=== PATIENT | female | born 1980 | race American Indian/Alaskan Native ===

== ENCOUNTER 2017-07-30 19:45 | Emergency (ER) | payer BC, MEDICAID ==
[2017-07-30 20:32] LABS: CHLORIDE,CL 106 mmol/L (101-111); SODIUM,NA 137 mmol/L (135-145)
[2017-07-30] MEDS ORDERED: Ketorolac 30 MG/ML SDV IVPUSH ONE (21:32)
--- NOTE | 2017-07-30 21:38 | EDM.PDOC ---
ED HPI GENERAL MEDICAL PROBLEM - General Chief Complaint: Cardiovascular Problem Stated Complaint: [id number] ARM HURTS CHEST PAINS Time Seen by Provider: 07/30/17 20:30 Source of Information: Reports: Patient History Limitations: Reports: No Limitations - History of Present Illness INITIAL COMMENTS - FREE TEXT/NARRATIVE: intermittent pain to left side of chest and under armpit since , Seemed worse tonight and felt heart was going fast. Left Arm Pain Score (Numeric/FACES): 3 - Related Data Allergies Allergy/AdvReac Type Severity Reaction Status Date / Time Sulfa (Sulfonamide Allergy Difficulty Verified 07/30/17 20:14 Antibiotics) Breathing pediazole Allergy unknown Uncoded 07/30/17 20:14 Home Meds: Home Meds Cyclobenzaprine [Flexeril] 10 mg PO DAILY PRN 08/16/13 [History] Hydrocodone/Acetaminophen [Hydrocodon-Acetaminophn 10-325] 1 tab PO Q4H PRN [History] LORazepam [Ativan] 1 mg PO Q8HR PRN 08/16/13 [History] Naproxyn PRN 08/16/13 [History] Pantoprazole [Protonix] 40 mg PO DAILY 08/16/13 [History] Zertec 1 tab PO DAILY 08/16/13 [History] Past Medical History - Past Surgical History Other Musculoskeletal Surgeries/Procedures:: left shoulder surgery Social & Family History - Tobacco Use Smoking Status *Q: Never Smoker - Caffeine Use Caffeine Use: Reports: Soda - Recreational Drug Use Recreational Drug Use: No - Living Situation & Occupation Living situation: Reports: with Family Occupation: Unemployed ED ROS GENERAL - Review of Systems Review Of Systems: See Below Constitutional: Denies: Fever, Chills HEENT: Reports: No Symptoms Respiratory: Reports: No Symptoms, Other (hurts to breathe at times) Cardiovascular: Reports: Chest Pain GI/Abdominal: Reports: No Symptoms Skin: Reports: No Symptoms Neurological: Reports: No Symptoms Psychiatric: Reports: Anxiety (hx) ED EXAM, GENERAL - Physical Exam Exam: See Below Exam Limited By: No Limitations General Appearance: Alert, Anxious Eye Exam: Bilateral Eye: EOMI, PERRL Ears: Normal External Exam Nose: Normal Inspection Throat/Mouth: Normal Inspection Head: Atraumatic, Normocephalic Neck: Normal Inspection, Full Range of Motion Respiratory/Chest: No Respiratory Distress, Lungs Clear, Other (lateral upper chest wall tenderness with light palpation, wincing iwth palpation to axillaery area) Cardiovascular: Normal Peripheral Pulses, No Edema GI/Abdominal: Normal Bowel Sounds Extremities: Normal Inspection Neurological: Alert, Oriented, Normal Cognition Psychiatric: Anxious Skin Exam: Warm, Dry, Intact, Normal Color EKG INTERPRETATION Rhythm: NSR Course - Vital Signs Last Recorded V/S: Last Vital Signs Temp 98.7 F 07/30/17 20:04 Pulse 110 H 07/30/17 20:04 Resp 16 07/30/17 20:04 BP 108/80 07/30/17 20:04 Pulse Ox 100 07/30/17 20:04 - Orders/Labs/Meds Orders: Active Orders 24 hr Category Date Time Status EKG Documentation Completion [RC] URGENT Care 07/30/17 20:06 Active Labs: Laboratory Tests 07/30/17 07/30/17 Range/Units 19:58 19:58 WBC 10.3 H (5.0-10.0) 10^3/uL RBC 4.18 L (4.2-5.4) 10^6/uL Hgb 13.2 (12.0-16.0) g/dL Hct 38.6 (37.0-47.0) % MCV 92.3 (80-100) fL MCH 31.6 (27.0-34.0) pg MCHC 34.2 (33.0-35.0) g/dL Plt Count 334 (150-450) 10^3/uL Neut % (Auto) 62.7 (42.2-75.2) % Lymph % (Auto) 27.9 (20.5-50.1) % [place] % (Auto) 7.0 (2-8) % Eos % (Auto) 2.1 (1.0-3.0) % Baso % (Auto) 0.3 (0.0-1.0) % Sodium 137 (135-145) mmol/L Potassium 3.4 L (3.6-5.0) mmol/L Chloride 106 (101-111) mmol/L Carbon Dioxide 23.0 (21.0-31.0) mmol/L Anion Gap 11.4 BUN 11 (7-18) mg/dL Creatinine 0.7 (0.6-1.3) mg/dL Est Cr Clr Drug Dosing 100.94 mL/min Estimated GFR (MDRD) > 60 BUN/Creatinine Ratio 15.71 Glucose 152 H (74-105) mg/dL Calcium 8.8 (8.4-10.2) mg/dl Total Bilirubin 0.8 (0.2-1.0) mg/dL AST 25 (10-42) IU/L ALT 24 (10-60) IU/L Alkaline Phosphatase 71 (42-121) IU/L Troponin I < 0.02 (0.00-0.02) ng/ml Total Protein 7.4 (6.7-8.2) g/dl Albumin 4.2 (3.2-5.5) g/dl Globulin 3.2 Albumin/Globulin Ratio 1.31 Amylase 76 (28-100) U/L Lipase 33 (22-51) U/L Meds: Medications Discontinued Medications Generic Name Dose Route Start Last Admin Trade Name Freq PRN Reason Stop Dose Admin Ketorolac Tromethamine 30 mg 07/30/17 21:32 07/30/17 21:36 Toradol IVPUSH 07/30/17 21:33 30 mg ONETIME ONE Administration Departure - Departure Time of Disposition: 21:33 Disposition: Home, Self-Care 01 Condition: Good Clinical Impression: Left-sided chest wall pain Instructions: Chest Wall Pain, [id number] Referrals: Rochelle Azar MD [Primary Care Provider] - Forms: ED Department Discharge Additional Instructions: alternate tylenol and ibuprofen for discomfort warm pack to left chest increase fluids light bland diet Lorazepam as prescribed for anxiety - My Orders Last 24 Hours: My Active Orders 07/30/17 20:06 EKG Documentation Completion [RC] URGENT - Assessment/Plan Last 24 Hours: My Active Orders 07/30/17 20:06 EKG Documentation Completion [RC] URGENT
--- NOTE | 2017-08-02 13:14 | EKG ---
07/30/2017 - ADRIENNE EDMOND - FINDINGS: A 12-lead EKG shows sinus rhythm with sinus tachycardia with heart rate of 123. No significant ST elevation or ST depression noted on this 12-lead EKG. [facility] /[id number]
== END 2017-07-30 21:45 | disposition home or self-care (01) ==
LOC: DL.ED 19:45
DX: R07.89 Other chest pain (principal); Z88.2 Allergy status to sulfonamides; Z88.8 Allergy status to other drugs, medicaments and biological substances
CPT/HCPCS: 36415; 71045; 80053; 82150; 83690; 84484; 85025; 93005; 96374; 99284; J1885

== ENCOUNTER 2018-11-22 19:38 | Emergency (ER) | payer BC ==
[2018-11-22] MEDS ORDERED: Sodium Chloride 0.9% 1,000 ML IV ONE (20:03)
[2018-11-22] MEDS ORDERED: Ketorolac 30 MG/ML SDV IVPUSH ONE (20:03)
--- NOTE | 2018-11-22 20:10 | EDM.PDOC ---
ED HPI GENERAL MEDICAL PROBLEM - General Chief Complaint: Headache Stated Complaint: MIGRANE Time Seen by Provider: 11/22/18 19:55 Source of Information: Reports: Patient History Limitations: Reports: No Limitations - History of Present Illness INITIAL COMMENTS - FREE TEXT/NARRATIVE: This 38 yo female patient reports to the ED with a 2 week history of headaches. The patient reports she was seen in the clinic for her headaches and was prescribed a 10 day supply of Imitrex. The patient reports she took 2 doses of Imitrex today, but has had no symptom relief. The patient reports she has also been experiencing facial pressure and intermittent dizziness. The patient reports she did not contact her primary care provider on Friday as she was traveling. The patient reports she has to travel again tomorrow for work. The patient reports she has only take the Imitrex and her regular medications today and has not taken any Tylenol or ibuprofen. Duration: Week(s): (2) Location: Reports: Head Quality: Reports: Ache, Pressure, Throbbing Severity: Severe Improves with: Reports: None Worsens with: Reports: None Context: Reports: Other Associated Symptoms: Reports: Headaches Treatments ACCOUNTING DIRECTOR: Reports: Other Medication(s) (Imitrex x 2) Frontal Head Pain Score (Numeric/FACES): 7 - Related Data Allergies Allergy/AdvReac Type Severity Reaction Status Date / Time Sulfa (Sulfonamide Allergy Difficulty Verified 03/15/18 12:25 Antibiotics) Breathing pediazole Allergy unknown Uncoded 07/30/17 20:14 Home Meds: Home Meds ALPRAZolam [Alprazolam] 0.5 mg PO ASDIRECTED PRN 11/22/18 [History] Cetirizine HCl [Zyrtec] 10 mg PO DAILY 11/22/18 [History] DULoxetine HCl [Duloxetine HCl] 20 mg PO DAILY 11/22/18 [History] Ibuprofen 400 mg PO ASDIRECTED PRN 11/22/18 [History] SUMAtriptan [Imitrex] 50 mg PO BID 11/22/18 [History] buPROPion HCl [Wellbutrin Xl] 300 mg PO DAILY 11/22/18 [History] Past Medical History HEENT History: Reports: Impaired 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 - Physical Exam Exam: See Below Exam Limited By: No Limitations General Appearance: Alert, WD/WN, Moderate Distress Eye Exam: Bilateral Eye: EOMI, Normal Inspection, PERRL Ears: Normal External Exam, Normal Canal, Hearing Grossly Normal, Normal TMs Nose: Normal Inspection, Normal Mucosa, No Blood Throat/Mouth: Normal Inspection, Normal Lips, Normal Teeth, Normal Gums, Normal Oropharynx, Normal Voice, No Airway Compromise Head Exam: Atraumatic, Normocephalic, Sinus Tenderness (diffuse) Neck: Normal Inspection, Supple, Non-Tender, Full Range of Motion Respiratory/Chest: No Respiratory Distress, Lungs Clear, Normal Breath Sounds, No Accessory Muscle Use, Chest Non-Tender Cardiovascular: Normal Peripheral Pulses, Regular Rate, Rhythm, No Edema, No Gallop, No JVD, No Murmur, No Rub GI/Abdominal: Normal Bowel Sounds, Soft, Non-Tender, No Organomegaly, No Distention, No Abnormal Bruit, No Mass (Female) Exam: Deferred Rectal (Female) Exam: Deferred Neuro Exam (Abbreviated): Alert, Oriented, CN II-XII Intact, Normal Cognition, Normal Gait, Normal Reflexes, No Motor/Sensory Deficits Back Exam: Normal Inspection, Full Range of Motion, NT Extremities: Normal Inspection, Normal Range of Motion, Non-Tender, No Pedal Edema, Normal Capillary Refill Psychiatric: Normal Affect, Normal Mood Skin Exam: Warm, Dry, Intact, Normal Color, No Rash Course - Vital Signs Last Recorded V/S: Last Vital Signs Temp 37.1 C 11/22/18 19:40 Pulse 111 H 11/22/18 19:40 Resp 18 11/22/18 19:40 BP 127/72 11/22/18 19:40 Pulse Ox 96 11/22/18 19:40 - Orders/Labs/Meds Meds: Medications Discontinued Medications Generic Name Dose Route Start Last Admin Trade Name Freq PRN Reason Stop Dose Admin Sodium Chloride 1,000 mls @ 999 mls/hr 11/22/18 20:03 11/22/18 20:25 Normal Saline IV 11/22/18 21:03 999 mls/hr .BOLUS ONE Administration Ketorolac Tromethamine 30 mg 11/22/18 20:03 11/22/18 20:26 Toradol IVPUSH 11/22/18 20:04 30 mg ONETIME ONE Administration Meclizine HCl 25 mg 11/22/18 21:14 11/22/18 21:22 Antivert PO 11/22/18 21:15 25 mg ONETIME ONE Administration Departure - Departure Time of Disposition: 21:54 Disposition: Home, Self-Care 01 Condition: Fair Clinical Impression: Headache Qualifiers: Headache type: unspecified Headache chronicity pattern: acute headache Intractability: intractable Qualified Code(s): R51 - Headache BPPV (benign paroxysmal positional vertigo) Qualifiers: Laterality: unspecified laterality Qualified Code(s): H81.10 - Benign paroxysmal vertigo, unspecified ear - Discharge Information *PRESCRIPTION DRUG MONITORING PROGRAM REVIEWED*: Not Applicable *COPY OF PRESCRIPTION DRUG MONITORING REPORT IN PATIENT DIANA: Not Applicable Instructions: Benign Positional Vertigo, Vertigo, Bkuy-[id number], Recurrent Migraine Headache, [id number] Forms: ED Department Discharge Care Plan Goals: The patient was advised of the examination and CT results during the visit. The patient was given IV fluids, IV Toradol and oral Meclizine (25 mg) while in the ED with improvement of her symptoms. The patient was discharged with Meclizine ( 12.5 mg) #6 to take 2 by mouth 3 times per day as needed and a script for Meclizine (25 mg) #12 to take 1 by mouth 3 times per day as needed. If the patient has any additional symptoms or concerns, the patient should either return to the emergency department or visit her primary care facility.
[2018-11-22] MEDS ORDERED: Meclizine 12.5 MG Tab PO ONE (21:14)
[2018-11-22] MEDS ORDERED: Meclizine 12.5 MG Tab ONE (21:58)
== END 2018-11-22 22:08 | disposition home or self-care (01) ==
LOC: DL.ED 19:38
DX: H81.10 Benign paroxysmal vertigo, unspecified ear (principal); R51 Headache; Z88.2 Allergy status to sulfonamides; Z88.8 Allergy status to other drugs, medicaments and biological substances; Z79.899 Other long term (current) drug therapy; Z90.710 Acquired absence of both cervix and uterus
CPT/HCPCS: 70486; 96361; 96374; 99283; A9270; J1885; J7030

== ENCOUNTER 2019-04-18 15:43 | Emergency (ER) | payer BC ==
[2019-04-18] MEDS ORDERED: Ondansetron 4 MG/2 ML SDV ONE (15:48)
[2019-04-18] MEDS ORDERED: Ondansetron 4 MG in Sodium Chloride 0.9% 50 ML IV ONE (15:48)
[2019-04-18] MEDS ORDERED: Diazepam 5 MG Tab PO ONE (16:00)
--- NOTE | 2019-04-18 16:02 | EDM.PDOC ---
ED HPI GENERAL MEDICAL PROBLEM - General Chief Complaint: Lower Extremity Injury/Pain Stated Complaint: AMBULANCE Time Seen by Provider: 04/18/19 15:45 Source of Information: Reports: Patient, RN, Significant Other History Limitations: Reports: No Limitations - History of Present Illness INITIAL COMMENTS - FREE TEXT/NARRATIVE: to 8 year old female presents to the ER with EMS after a fall. Patient reports she was getting into the car and slipped on the stairs. She reports falling down 4 stairs with her buttocks. She is reporting buttock pain with the left worst than the right side. She denies hitting her head or loss of consciousness. She is moaning and anxious. She is also vomiting. She was given fentanyl 75 mcg enroute to the ER but her states she has been struggling with nausea for the past two weeks. Patient is not . She has had a hysterectomy. Onset: Today Duration: Hour(s): (1), Constant Location: Reports: Pelvis Quality: Reports: Throbbing Severity: Severe Improves with: Reports: None Worsens with: Reports: Movement Associated Symptoms: Reports: Nausea/Vomiting Treatments CONSULTING SERVICES MANAGER: Reports: Other (see below) Left Hip Pain Score (Numeric/FACES): 10 - Related Data Allergies Allergy/AdvReac Type Severity Reaction Status Date / Time Sulfa (Sulfonamide Allergy Difficulty Verified 04/18/19 16:34 Antibiotics) Breathing pediazole Allergy unknown Uncoded 07/30/17 20:14 Home Meds: Home Meds ALPRAZolam [Alprazolam] 0.5 mg PO ASDIRECTED PRN 11/22/18 [History] Cetirizine HCl [Zyrtec] 10 mg PO DAILY 11/22/18 [History] DULoxetine HCl [Duloxetine HCl] 20 mg PO DAILY 11/22/18 [History] Ibuprofen 400 mg PO ASDIRECTED PRN 11/22/18 [History] SUMAtriptan [Imitrex] 50 mg PO BID 11/22/18 [History] buPROPion HCl [Wellbutrin Xl] 300 mg PO DAILY 11/22/18 [History] Past Medical History HEENT History: Reports: Impaired 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: Musculoskeletal History: Reports: Back Pain, Chronic Neurological History: Reports: Migraines Psychiatric History: Reports: Depression - Past Surgical History Female Surgical History: Reports: Section, Hysterectomy Musculoskeletal Surgical History: Reports: Other (See Below) Other Musculoskeletal Surgeries/Procedures:: left shoulder surgery Social & Family History - Caffeine Use Caffeine Use: Reports: Energy Drinks - Living Situation & Occupation Living situation: Reports: with Family Occupation: Unemployed Review of Systems - Review of Systems Review Of Systems: Comprehensive ROS is negative, except as noted in HPI. ED EXAM, GENERAL - Physical Exam Exam: See Below Exam Limited By: No Limitations General Appearance: Alert, Anxious, Severe Distress Eye Exam: Bilateral Eye: Normal Inspection Ears: Normal External Exam, Normal Canal, Hearing Grossly Normal, Normal TMs Nose: Normal Inspection, Normal Mucosa, No Blood Throat/Mouth: Normal Inspection, Normal Lips, Normal Teeth, Normal Gums, Normal Oropharynx, Normal Voice, No Airway Compromise Head: Atraumatic, Normocephalic Neck: Normal Inspection, Supple, Non-Tender, Full Range of Motion Respiratory/Chest: No Respiratory Distress, Lungs Clear, Normal Breath Sounds, No Accessory Muscle Use, Chest Non-Tender Cardiovascular: Normal Peripheral Pulses, Regular Rate, Rhythm, No Edema, No Gallop, No JVD, No Murmur, No Rub Peripheral Pulses: 3+: Posterior Tibial (L), Posterior Tibial (R), Dorsalis Pedis (L), Dorsalis Pedis (R) GI/Abdominal: Normal Bowel Sounds, Soft, Non-Tender, No Organomegaly, No Distention, No Abnormal Bruit, No Mass Back Exam: Normal Inspection, Other (unable to perform as patient refused.) Extremities: Normal Inspection, No Pedal Edema, Normal Capillary Refill, Limited Range of Motion (Limitted ROM noted as patient will not move her legs due to pain.) Neurological: Alert, Oriented, CN II-XII Intact, Normal Cognition, Normal Gait, Normal Reflexes, No Motor/Sensory Deficits Psychiatric: Anxious, Tearful Skin Exam: Warm, Dry, Intact, No Rash, Ecchymosis (mild bruising noted on the left buttocks) Course - Vital Signs Last Recorded V/S: Last Vital Signs Temp 98.2 F 04/18/19 15:45 Pulse 88 04/18/19 17:12 Resp 24 H 04/18/19 15:45 BP 94/47 L 04/18/19 17:12 Pulse Ox 99 04/18/19 17:12 - Orders/Labs/Meds Labs: Laboratory Tests 04/18/19 04/18/19 Range/Units 16:44 16:44 WBC 12.5 H (5.0-10.0) 10^3/uL RBC 4.19 L (4.2-5.4) 10^6/uL Hgb 13.1 (12.0-16.0) g/dL Hct 38.9 (37.0-47.0) % MCV 92.8 (80-100) fL MCH 31.3 (27.0-34.0) pg MCHC 33.7 (33.0-35.0) g/dL Plt Count 342 (150-450) 10^3/uL Neut % (Auto) 78.2 H (42.2-75.2) % Lymph % (Auto) 14.1 L (20.5-50.1) % [place] % (Auto) 6.8 (2-8) % Eos % (Auto) 0.6 L (1.0-3.0) % Baso % (Auto) 0.3 (0.0-1.0) % Sodium 138 (135-145) mmol/L Potassium 4.4 (3.6-5.0) mmol/L Chloride 105 (101-111) mmol/L Carbon Dioxide 23.0 (21.0-31.0) mmol/L Anion Gap 14.4 BUN 9 (7-18) mg/dL Creatinine 0.7 (0.6-1.3) mg/dL Est Cr Clr Drug Dosing 95.94 mL/min Estimated GFR (MDRD) > 60 BUN/Creatinine Ratio 12.85 Glucose 90 (74-105) mg/dL Calcium 9.0 (8.4-10.2) mg/dl Total Bilirubin 1.1 H (0.2-1.0) mg/dL AST 24 (10-42) IU/L ALT 27 (10-60) IU/L Alkaline Phosphatase 62 (42-121) IU/L Total Protein 7.1 (6.7-8.2) g/dl Albumin 4.1 (3.2-5.5) g/dl Globulin 3.0 Albumin/Globulin Ratio 1.37 Meds: Medications Discontinued Medications Generic Name Dose Route Start Last Admin Trade Name Freq PRN Reason Stop Dose Admin Diazepam 5 mg 04/18/19 16:00 Valium. PO 04/18/19 16:01 ONETIME ONE Diazepam 5 mg 04/18/19 16:02 04/18/19 16:08 Valium IVPUSH 04/18/19 16:03 5 mg ONETIME ONE Administration Diazepam 5 mg 04/18/19 17:04 04/18/19 17:10 Valium IVPUSH 04/18/19 17:05 5 mg ONETIME ONE Administration Ondansetron HCl 4 mg/ Sodium 52 mls @ 200 mls/hr 04/18/19 15:48 04/18/19 15: 55 Chloride IV 04/18/19 16:04 200 mls/hr ONETIME ONE Administration Sodium Chloride 500 mls @ 500 mls/hr 04/18/19 16:15 04/18/19 17:11 Normal Saline IV 500 mls/hr .BOLUS HONG Administration Metoclopramide HCl 10 mg 04/18/19 17:03 04/18/19 17:10 Reglan IM 04/18/19 17:04 10 mg ONETIME ONE Administration Ondansetron HCl Confirm 04/18/19 15:48 04/18/19 15:55 Zofran Administered 04/18/19 15:49 Not Given Dose 4 mg .ROUTE .[facility] - Radiology Interpretation Free Text/Narrative:: PROCEDURE INFORMATION: Exam: CT Pelvis Without Contrast; Skeletal Exam date and time: 04/18/2019 4:16 PM Age: 38 years old Clinical indication: Other: Fall/ pain left hip------pt uncooperative TECHNIQUE: Imaging protocol: Computed tomography images of the pelvis without contrast. Exam focused on the skeletal structures. Radiation optimization: All CT scans at this facility use at least one of these dose optimization techniques: automated exposure control; mA and/or kV adjustment per patient size (includes targeted exams where dose is matched to clinical indication); or iterative reconstruction. COMPARISON: CR Hip Min 1V Lt 04/18/2019 3:54 PM FINDINGS: Bones/joints: Unremarkable. No acute fracture. No dislocation. Soft tissues: There is a small hematoma superficial to upper left gluteal complex IMPRESSION: No acute osseous findings. - Re-Assessments/Exams Free Text/Narrative Re-Assessment/Exam: Zofran 4 mg administered with little relief. Valium 5 g x 2 with Reglan 10 mg administered with some relief. in pain. CT and lab results reviewed with patient. Encouraged applying ice every 20 minutes/hour. Rx for Flexeril 10 mg TID given to patient. Follow up with PCP. More information included in the AVS. Departure - Departure Time of Disposition: 17:28 Disposition: Home, Self-Care 01 Condition: Good Clinical Impression: Fall (on) (from) other stairs and steps, initial encounter, Superficial hematoma - Discharge Information Instructions: Muscle Strain, [id number], Fall Prevention in the Home, Adult Referrals: Rochelle Azar MD [Primary Care Provider] - Forms: ED Department Discharge Additional Instructions: Follow up with PCP as discussed. Sepsis Event Note - Evaluation Sepsis Screening Result: No Definite Risk - Focused Exam Date Exam was Performed: 04/19/19 Time Exam was Performed: 14:42
[2019-04-18] MEDS ORDERED: Sodium Chloride 0.9% 500 ML IV SCH (16:15)
[2019-04-18] MEDS ORDERED: Metoclopramide 10 MG/2 ML SDV IM ONE (17:03)
[2019-04-18 17:13] LABS: ANION GAP 14.4; CHLORIDE,CL 105 mmol/L (101-111); SODIUM,NA 138 mmol/L (135-145)
== END 2019-04-18 18:04 | disposition home or self-care (01) ==
LOC: DL.ED 15:43
DX: S30.0XXA Contusion of lower back and pelvis, initial encounter (principal); F32.9 Major depressive disorder, single episode, unspecified; Z88.2 Allergy status to sulfonamides; Z88.8 Allergy status to other drugs, medicaments and biological substances; Z79.899 Other long term (current) drug therapy; W10.8XXA Fall (on) (from) other stairs and steps, initial encounter
CPT/HCPCS: 36415; 72192; 73501; 80053; 85025; 96361; 96372; 96374; 96375; 96376; 99284; J2405; J2765; J3360; J7040; J7050

== ENCOUNTER 2019-08-06 14:19 | Inpatient (IN) | payer BC ==
[2019-08-06] MEDS ORDERED: Sodium Chloride 0.9% 1,000 ML IV ONE (14:32)
[2019-08-06] MEDS ORDERED: Ondansetron 4 MG/2 ML SDV IVPUSH ONE (14:33)
[2019-08-06] MEDS ORDERED: HYDROmorphone 0.5 MG/0.5 ML Syringe IVPUSH ONE (14:39)
--- NOTE | 2019-08-06 14:49 | EDM.PDOC ---
ED HPI GENERAL MEDICAL PROBLEM - General Chief Complaint: Flank Pain Stated Complaint: ABDOMINAL PAIN Time Seen by Provider: 08/06/19 14:35 Source of Information: Reports: Patient History Limitations: Reports: No Limitations - History of Present Illness INITIAL COMMENTS - FREE TEXT/NARRATIVE: This 39 yo female patient was sent to the ED from the [facility] due to right sided abdominal pain. The patient reports her pain started yesterday, but she has also had nausea and vomiting which started today. The patient presented to the clinic, but was in too much pain for a complete examination. The patient does have a history of kidney stones and kidney infections in the past. The patient reports her current pain is a 10/10 and locates her pain throughout the entire right side of her abdomen. Onset Date: 08/05/19 Duration: Constant, Getting Worse Location: Reports: Abdomen (Right sided) Quality: Reports: Ache, Sharp, Stabbing Severity: Severe Improves with: Reports: None Worsens with: Reports: None Context: Reports: Other Associated Symptoms: Reports: No Other Symptoms Right Flank Pain Score (Numeric/FACES): 8 Right Abdomen Pain Score (Numeric/FACES): 6 - Related Data Allergies Allergy/AdvReac Type Severity Reaction Status Date / Time Sulfa (Sulfonamide Allergy Difficulty Verified 08/06/19 14:31 Antibiotics) Breathing pediazole Allergy unknown Uncoded 08/06/19 14:31 Home Meds: Home Meds ALPRAZolam [Alprazolam] 0.5 mg PO ASDIRECTED PRN 11/22/18 [History] Cetirizine HCl [Zyrtec] 10 mg PO DAILY 11/22/18 [History] DULoxetine HCl [Duloxetine HCl] 60 mg PO DAILY 11/22/18 [History] Ibuprofen 400 mg PO ASDIRECTED PRN 11/22/18 [History] SUMAtriptan [Imitrex] 50 mg PO BID 11/22/18 [History] buPROPion HCL [Wellbutrin Xl] 300 mg PO DAILY 11/22/18 [History] Past Medical History HEENT History: Reports: Impaired Vision Gastrointestinal History: Reports: Cholelithiasis Genitourinary History: Reports: Renal Calculus, UTI, 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: Musculoskeletal History: Reports: Back Pain, Chronic Neurological History: Reports: Migraines Psychiatric History: Reports: Depression - Past Surgical History Female Surgical History: Reports: Section, Hysterectomy Musculoskeletal Surgical History: Reports: Other (See Below) Other Musculoskeletal Surgeries/Procedures:: left shoulder surgery Social & Family History - Tobacco Use Smoking Status *Q: Never Smoker Second Hand Smoke Exposure: No - Caffeine Use Caffeine Use: Reports: Energy Drinks - Recreational Drug Use Recreational Drug Use: Yes Drug Use in Last 12 Months: Yes Recreational Drug Type: Reports: Marijuana/Hashish - Living Situation & Occupation Living situation: Reports: with Family Occupation: Unemployed ED ROS GENERAL - Review of Systems Review Of Systems: Comprehensive ROS is negative, except as noted in HPI. ED EXAM, GI/ABD - Physical Exam Exam: See Below Exam Limited By: No Limitations General Appearance: Alert, WD/WN, Severe Distress, Obese Eyes: Bilateral: Normal Appearance, EOMI Ears: Normal External Exam, Normal Canal, Hearing Grossly Normal, Normal TMs Nose: Normal Inspection, Normal Mucosa, No Blood Throat/Mouth: Normal Inspection, Normal Lips, Normal Teeth, Normal Gums, Normal Oropharynx, Normal Voice, No Airway Compromise Head: Atraumatic, Normocephalic Neck: Normal Inspection, Supple, Non-Tender, Full Range of Motion Respiratory/Chest: No Respiratory Distress, Lungs Clear, Normal Breath Sounds, No Accessory Muscle Use, Chest Non-Tender Cardiovascular: Normal Peripheral Pulses, Regular Rate, Rhythm, No Edema, No Gallop, No JVD, No Murmur, No Rub GI/Abdominal Exam: Normal Bowel Sounds, Tender (throughout abdomen with light palpation. The patinet reports increased pain with psoas testing. ) (Female) Exam: Deferred Rectal (Female) Exam: Deferred Back Exam: CVA Tenderness (R) Extremities: Normal Inspection, Normal Range of Motion, Non-Tender, Normal Capillary Refill, No Pedal Edema Neurological: Alert, Oriented, CN II-XII Intact, Normal Cognition Psychiatric: Anxious, Tearful Skin Exam: Warm, Dry, Intact, Normal Color, No Rash Lymphatic: No Adenopathy Course - Vital Signs Last Recorded V/S: Last Vital Signs Temp 37.8 C 08/06/19 14:22 Pulse 123 H 08/06/19 14:22 Resp 18 08/06/19 14:22 BP 103/81 08/06/19 14:22 Pulse Ox 97 08/06/19 14:22 - Orders/Labs/Meds Orders: Active Orders 24 hr Category Date Time Status Admission Diagnosis [ADT] Urgent ADT 08/06/19 16:20 Ordered Admission Status [Patient Status] [ADT] Routine ADT 08/06/19 16:20 Ordered Abdomen wo Cont [CT] Urgent Exams 08/06/19 15:33 Ordered CULTURE BLOOD [BC] Stat Lab 08/06/19 14:32 Ordered CULTURE BLOOD [BC] Stat Lab 08/06/19 16:06 Ordered Levofloxacin/Dextrose 5%-Water [Levaquin in D5W 500 MG/ Med 08/06/19 16:12 Ordered 100 ML] 500 mg Premix Bag 1 bag IV ONETIME Medication Orders Levofloxacin/Dextrose 500 mg/ (Premix) 100 mls @ 100 mls/hr IV ONETIME ONE Stop: 08/06/19 17:11 Last Admin: 08/06/19 16:21 Dose: 100 mls/hr Labs: Laboratory Tests 08/06/19 08/06/19 08/06/19 Range/Units 14:45 14:45 14:45 WBC 13.0 H (5.0-10.0) 10^3/uL RBC 4.03 L (4.2-5.4) 10^6/uL Hgb 12.7 (12.0-16.0) g/dL Hct 37.1 (37.0-47.0) % MCV 92.1 (80-100) fL MCH 31.5 (27.0-34.0) pg MCHC 34.2 (33.0-35.0) g/dL Plt Count 262 D (150-450) 10^3/uL Neut % (Auto) 83.6 H (42.2-75.2) % Lymph % (Auto) 7.7 L (20.5-50.1) % Roberts % (Auto) 8.3 H (2-8) % Eos % (Auto) 0.2 L (1.0-3.0) % Baso % (Auto) 0.2 (0.0-1.0) % Sodium 136 (136-145) mmol/L Potassium 3.1 L (3.5-5.1) mmol/L Chloride 99 (98-107) mmol/L Carbon Dioxide 25 (21-32) mmol/L Anion Gap 15.1 H (7-13) mEq/L BUN 9 (7-18) mg/dL Creatinine 0.91 (0.55-1.02) mg/dL Est Cr Clr Drug Dosing 73.09 mL/min Estimated GFR (MDRD) > 60 BUN/Creatinine Ratio 9.9 (No establ ref range) Glucose 124 H (74-99) mg/dL Lactic Acid 1.2 (0.4-2.0) mmol/L Calcium 8.5 (8.5-10.1) mg/dL Total Bilirubin 2.1 H (0.2-1.0) mg/dL AST 19 (15-37) U/L ALT 44 (14-59) U/L Alkaline Phosphatase 100 (46-116) U/L Total Protein 7.2 (6.4-8.2) g/dL Albumin 3.4 (3.4-5.0) g/dL Globulin 3.8 Albumin/Globulin Ratio 0.9 Amylase 40 (25-115) U/L Lipase 78 (73-393) U/L Meds: Medications Generic Name Dose Route Start Last Admin Trade Name Freq PRN Reason Stop Dose Admin Levofloxacin/Dextrose 500 mg/ 100 mls @ 100 mls/hr 08/06/19 16:12 08/06/19 16 :21 Premix IV 08/06/19 17:11 100 mls/hr ONETIME ONE Administration Discontinued Medications Generic Name Dose Route Start Last Admin Trade Name Freq PRN Reason Stop Dose Admin Hydromorphone HCl 0.5 mg 08/06/19 14:39 08/06/19 14:58 Dilaudid IVPUSH 08/06/19 14:40 0.5 mg ONETIME ONE Administration Sodium Chloride 1,000 mls @ 999 mls/hr 08/06/19 14:32 08/06/19 14:51 Normal Saline IV 08/06/19 15:32 999 mls/hr .BOLUS ONE Administration Metoclopramide HCl 10 mg 08/06/19 15:01 08/06/19 15:05 Reglan IVPUSH 08/06/19 15:02 10 mg ONETIME ONE Administration Ondansetron HCl 4 mg 08/06/19 14:33 08/06/19 14:51 Zofran IVPUSH 08/06/19 14:34 4 mg ONETIME ONE Administration - Re-Assessments/Exams Free Text/Narrative Re-Assessment/Exam: 08/06/19 15:03 The patient started vomiting after she was given the IV Dilaudid. An order was placed for Reglan. Departure - Departure Time of Disposition: 16:23 Disposition: Admitted As Inpatient 68 Condition: Poor Clinical Impression: Pyelonephritis - Discharge Information *PRESCRIPTION DRUG MONITORING PROGRAM REVIEWED*: Not Applicable *COPY OF PRESCRIPTION DRUG MONITORING REPORT IN PATIENT DIANA: Not Applicable Care Plan Goals: Discussed the patient's history, examination, lab, CT and treatments with Dr. Mcdaniel. Dr. Salcido accepted the patient for continued evaluation and management as an inpatient at [facility]. Sepsis Event Note - Evaluation Sepsis Screening Result: No Definite Risk - Focused Exam Vital Signs: Vital Signs Temp Pulse Resp BP Pulse Ox 08/06/19 14:22 37.8 C 123 H 18 103/81 97 Date Exam was Performed: 08/06/19 Time Exam was Performed: 16:22 - My Orders Last 24 Hours: My Active Orders 08/06/19 14:32 CULTURE BLOOD [BC] Stat 08/06/19 15:33 Abdomen wo Cont [CT] Urgent 08/06/19 16:06 CULTURE BLOOD [BC] Stat 08/06/19 16:12 Levofloxacin/Dextrose 5%-Water [Levaquin in D5W 500 MG/100 ML] 500 mg Premix Bag 1 bag IV ONETIME 08/06/19 16:20 Admission Diagnosis [ADT] Urgent Admission Status [Patient Status] [ADT] Routine - Assessment/Plan Last 24 Hours: My Active Orders 08/06/19 14:32 CULTURE BLOOD [BC] Stat 08/06/19 15:33 Abdomen wo Cont [CT] Urgent 08/06/19 16:06 CULTURE BLOOD [BC] Stat 08/06/19 16:12 Levofloxacin/Dextrose 5%-Water [Levaquin in D5W 500 MG/100 ML] 500 mg Premix Bag 1 bag IV ONETIME 08/06/19 16:20 Admission Diagnosis [ADT] Urgent Admission Status [Patient Status] [ADT] Routine
[2019-08-06] MEDS ORDERED: Metoclopramide 10 MG/2 ML SDV IVPUSH ONE (15:01)
[2019-08-06 15:27] LABS: ANION GAP 15.1 mEq/L (7-13); CHLORIDE,CL 99 mmol/L (98-107); SODIUM,NA 136 mmol/L (136-145)
[2019-08-06] MEDS ORDERED: Levofloxacin/Dextrose 5%-Water 500 MG in Premix Bag 1 BAG IV ONE (16:12)
--- NOTE | 2019-08-06 16:18 | CT ---
EXAMINATION: Abdomen Pelvis wo Cont SEX: Female AGE: 39 years CLINICAL HISTORY: 39-year-old 219 pound female complaining of right lower quadrant pain (previous hysterectomy). "Dirty" urine reported by the ER provider. Scan technique: Volume acquisition of data emergency unenhanced CT scan of the abdomen and pelvis obtained with patient lying supine on the Siemens multislice scanner [place], [place]. All data archived in the PACS system for storage, reformatting axial/sagittal/coronal planes and study. Interpretation: 1. Edematous appearing right kidney with perinephric "dirty" retroperitoneal fat indicating sinus backflow or infection (no sign of nephrolithiasis or pyelocaliectasis and suggest pyelonephritis). 2. No renal calcifications or renal cortical mass lesion appreciated on this non-opacified exam. 3. Asymmetrically large ovary with several tiny follicular type cysts in the periphery. Multiple phleboliths in the pelvis. Symmetrically distended normal normal appearing urinary bladder. No intravesicular calcifications or bladder stones. 4. Normal caliber aortoiliac vessels. No aneurysm or dissection. 5. Subtle punctate calcific densities in the center of the gallbladder suggesting stones. No abnormal biliary ductal dilatation. 6. Unenhanced liver, stomach, spleen, pancreas, and adrenal glands unremarkable. 7. No pelvic or abdominal mass lesion, inflammatory "dirty" intraperitoneal fat, signs of mechanical bowel obstruction, ascites or free intraperitoneal air. Appendix not appreciated but certainly without stones or inflammation. CONCLUSION: Right kidney inflammation (pyelonephritis). No sign of appendicitis, nephrolithiasis or obstructive uropathy.
[2019-08-06] MEDS ORDERED: 50% Dextrose in Water 50 ML Syringe IVPUSH PRN (17:13)
[2019-08-06] MEDS ORDERED: Promethazine 25 MG Tab PO PRN ×2 (17:13→17:36)
[2019-08-06] MEDS ORDERED: Glucagon,Human Recombinant 1 MG Vial IM PRN (17:13)
[2019-08-06] MEDS ORDERED: oxyCODONE 5 MG Tab PO PRN ×2 (17:13)
[2019-08-06] MEDS ORDERED: Promethazine 25 MG/ML SDV IM PRN (17:13)
[2019-08-06] MEDS ORDERED: Ondansetron 4 MG/2 ML SDV IVPUSH PRN (17:13)
[2019-08-06] MEDS ORDERED: Morphine 2 MG/ML SYRINGE IVPUSH PRN (17:13)
[2019-08-06] MEDS ORDERED: fentaNYL 100 MCG/2 ML SDV IVPUSH ONE (17:17)
[2019-08-06] MEDS ORDERED: Promethazine 12.5 MG Supp RECTAL PRN (17:36)
--- NOTE | 2019-08-06 17:36 | PCM.HP ---
H&P History of Present Illness - General Date of Service: 08/06/19 Admit Problem/Dx: Admission Diagnosis/Problem Admission Diagnosis/Problem Nephritis Source of Information: Patient, Provider History Limitations: Reports: No Limitations - History of Present Illness Initial Comments - Free Text/Narative: Patient is a 39-year-old female with medical history significant for polycystic ovarian syndrome, antiphospholipid antibody syndrome, secondary infertility, anxiety, GERD, and obesity who was sent to the ED from clinic after she presented with abdominal pain. Patient reports that she has had 3-4/10 right- sided mid back pain that started below the wrist about 3 days ago. States that pain has been slowly progressive and has involve the right upper abdomen and now the entire abdomen. States the pain was 9/10 prior to presentation to the ED. Reports that she had recurrent emesis throughout the night last night. States that emesis was nonbilious and nonbloody. Reports shaking chills and diaphoresis overnight. Denies any abdominal trauma. States that she had dysuria that started about 4 days ago. Denies hematuria. Denies chest pain, shortness of breath, diarrhea, constipation, edema, lightheadedness, vision changes, or any other symptoms. In the clinic, UA was obtained which showed small leukocytes and was positive for nitrites. Urine microscopy showed moderate bacteria, greater than 100 WBCs per high-power field. Also showed 1-5 RBCs per a high-power field. Patient was sent to the ED for further work-up. In the ED, WBC count was 13.0 with hemoglobin of 12.7 and platelet count of 262. Patient's sodium was 136 with potassium of 3.1 chloride was 99, bicarb 25 , creatinine 0.91, BUN of 9, and glucose of 124. Lactic acid was 1.2. Total bilirubin was 2.1. CT abdomen pelvis was obtained without contrast which showed pyelonephritis. Was given a dose of IV Levaquin. She had nausea vomiting in the ED and required IV Zofran and Reglan. She continues to have nausea and vomiting. Patient is being admitted for IV antibiotics and intractable nausea vomiting. Right Flank Pain Score (Numeric/FACES): 8 Right Abdomen Pain Score (Numeric/FACES): 6 - Related Data Allergies/Adverse Reactions: Allergies Allergy/AdvReac Type Severity Reaction Status Date / Time Sulfa (Sulfonamide Allergy Difficulty Verified 08/06/19 16:50 Antibiotics) Breathing pediazole Allergy unknown Uncoded 08/06/19 16:50 Home Medications: Home Meds ALPRAZolam [Alprazolam] 0.5 mg PO DAILY PRN 11/22/18 [History] Cetirizine HCl [Zyrtec] 10 mg PO DAILY PRN 11/22/18 [History] Ibuprofen 400 mg PO Q4H PRN 11/22/18 [History] SUMAtriptan [Imitrex] 50 mg PO BID PRN 11/22/18 [History] buPROPion HCL [Wellbutrin Xl] 300 mg PO DAILY 11/22/18 [History] DULoxetine HCl [Duloxetine HCl] 60 mg PO DAILY 08/06/19 [History] Past Medical History HEENT History: Reports: Impaired Vision Respiratory History: Reports: Bronchitis, Recurrent Gastrointestinal History: Reports: Cholelithiasis Genitourinary History: Reports: Renal Calculus, UTI, Recurrent 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 States it is not active at this time. - Past Surgical History HEENT Surgical History: Reports: None Respiratory Surgical History: Reports: None GI Surgical History: Reports: None Female Surgical History: Reports: Section, D&C, Hysterectomy Musculoskeletal Surgical History: Reports: Other (See Below) Other Musculoskeletal Surgeries/Procedures:: left shoulder surgery Social & Family History - Family History Family Medical History: Noncontributory - Tobacco Use Smoking Status *Q: Never Smoker Second Hand Smoke Exposure: No - Caffeine Use Caffeine Use: Reports: Energy Drinks - Recreational Drug Use Recreational Drug Use: Yes Drug Use in Last 12 Months: Yes Recreational Drug Type: Reports: Marijuana/Hashish Recreational Drug Use Frequency: Weekly - Living Situation & Occupation Living situation: Reports: with Family Occupation: Unemployed H&P Review of Systems - Review of Systems: Review Of Systems: Comprehensive ROS is negative, except as noted in HPI. Exam - Exam Exam: See Below - Vital Signs Vital Signs: Last Vital Signs Temp 100.2 F 08/06/19 16:26 Pulse 109 H 08/06/19 16:26 Resp 18 08/06/19 16:26 BP 109/57 L 08/06/19 16:26 Pulse Ox 96 08/06/19 16:26 Weight: 220 lb 3.2 oz - Exam General: Alert, Oriented, Cooperative, Moderate Distress HEENT: Conjunctiva Clear, EOMI, Hearing Intact, Mucosa Moist & Maceo Neck: Supple, Trachea Midline Lungs: Clear to Auscultation, Normal Respiratory Effort Cardiovascular: Regular Rhythm, Tachycardia GI/Abdominal Exam: Normal Bowel Sounds, Soft, No Distention, Tender Back Exam: CVA Tenderness (R) Extremities: Normal Inspection, Non-Tender, No Pedal Edema Skin: Warm, Dry, Intact Neuro Extensive - Mental Status: Alert, Oriented x3, Normal Mood/Affect, Memory Intact Psychiatric: Alert, Normal Affect, Normal Mood - Patient Data Lab Results Last 24 hrs: Laboratory Results - last 24 hr 08/06/19 08/06/19 08/06/19 Range/Units 14:45 14:45 14:45 WBC 13.0 H (5.0-10.0) 10^3/uL RBC 4.03 L (4.2-5.4) 10^6/uL Hgb 12.7 (12.0-16.0) g/dL Hct 37.1 (37.0-47.0) % MCV 92.1 (80-100) fL MCH 31.5 (27.0-34.0) pg MCHC 34.2 (33.0-35.0) g/dL Plt Count 262 D (150-450) 10^3/uL Neut % (Auto) 83.6 H (42.2-75.2) % Lymph % (Auto) 7.7 L (20.5-50.1) % [place] % (Auto) 8.3 H (2-8) % Eos % (Auto) 0.2 L (1.0-3.0) % Baso % (Auto) 0.2 (0.0-1.0) % Sodium 136 (136-145) mmol/L Potassium 3.1 L (3.5-5.1) mmol/L Chloride 99 (98-107) mmol/L Carbon Dioxide 25 (21-32) mmol/L Anion Gap 15.1 H (7-13) mEq/L BUN 9 (7-18) mg/dL Creatinine 0.91 (0.55-1.02) mg/dL Est Cr Clr Drug Dosing 73.09 mL/min Estimated GFR (MDRD) > 60 BUN/Creatinine Ratio 9.9 (No establ ref range) Glucose 124 H (74-99) mg/dL Lactic Acid 1.2 (0.4-2.0) mmol/L Calcium 8.5 (8.5-10.1) mg/dL Total Bilirubin 2.1 H (0.2-1.0) mg/dL AST 19 (15-37) U/L ALT 44 (14-59) U/L Alkaline Phosphatase 100 (46-116) U/L Total Protein 7.2 (6.4-8.2) g/dL Albumin 3.4 (3.4-5.0) g/dL Globulin 3.8 Albumin/Globulin Ratio 0.9 Amylase 40 (25-115) U/L Lipase 78 (73-393) U/L Result Diagrams: 08/06/19 14:45 08/06/19 14:45 - Problem List (1) Anxiety SNOMED Code(s): 80965992 ICD Code: F41.9 - ANXIETY DISORDER, UNSPECIFIED Status: Acute Current Visit: Yes (2) Sepsis due to urinary tract infection SNOMED Code(s): 300183601 ICD Code: A41.9 - SEPSIS, UNSPECIFIED ORGANISM; N39.0 - URINARY TRACT INFECTION, SITE NOT SPECIFIED Status: Acute Current Visit: Yes (3) Hypokalemia SNOMED Code(s): 90860689 ICD Code: E87.6 - HYPOKALEMIA Status: Acute Current Visit: Yes (4) Obesity (BMI 30-39.9) SNOMED Code(s): 333809221, 285625103 ICD Code: E66.9 - OBESITY, UNSPECIFIED Status: Acute Current Visit: Yes (5) Pyelonephritis SNOMED Code(s): 70507043 ICD Code: N12 - TUBULO-INTERSTITIAL NEPHRITIS, NOT SPCF ACUTE OR CHRONIC Status: Acute Current Visit: No Problem List Initiated/Reviewed/Updated: Yes Orders Last 24hrs: Active Orders 24 hr Category Date Time Status Admission Diagnosis [ADT] Urgent ADT 08/06/19 16:20 Ordered Admission Status [Patient Status] [ADT] Routine ADT 08/06/19 16:20 Active Diabetes Education [RC] Click to Edit Care 08/06/19 17:13 Ordered Intake and Output [RC] QSHIFT Care 08/06/19 17:13 Ordered Notify Provider [RC] PRN Care 08/06/19 17:13 Ordered Oxygen Therapy [RC] PRN Care 08/06/19 17:13 Ordered VTE/DVT Education [RC] PER UNIT ROUTINE Care 08/06/19 17:13 Ordered Vital Signs [RC] Q4H Care 08/06/19 17:13 Ordered Regular Diet [DIET] Diet 08/06/19 Dinner Ordered Abdomen wo Cont [CT] Urgent Exams 08/06/19 15:33 Ordered BASIC METABOLIC PANEL,BMP [CHEM] AM Lab 08/07/19 05:11 Ordered CBC W/O DIFF,HEMOGRAM [HEME] AM Lab 08/07/19 05:11 Ordered CULTURE BLOOD [BC] Stat Lab 08/06/19 14:45 Received CULTURE BLOOD [BC] Stat Lab 08/06/19 16:20 Received PHOSPHORUS [CHEM] AM Lab 08/07/19 05:11 Ordered POTASSIUM,K [CHEM] AM Lab 08/07/19 05:11 Ordered Dextrose 50% in Water Med 08/06/19 17:13 Ordered 25 ml IVPUSH ASDIRECTED PRN Docusate Sodium/Sennosides [Senna Plus] Med 08/06/19 17:13 Ordered 1 tab PO BEDTIME PRN Glucagon,Human Recombinant [GlucaGen] Med 08/06/19 17:13 Ordered 1 mg IM ONETIME PRN Heparin Sodium Med 08/06/19 22:00 Ordered 5,000 units SUBCUT Q8HR Levofloxacin/Dextrose 5%-Water [Levaquin in D5W 750 MG/ Med 08/07/19 17:00 Ordered 150 ML] 750 mg Premix Bag 1 bag IV Q24H Morphine Med 08/06/19 17:13 Ordered 2 mg IVPUSH Q3H PRN Ondansetron [Zofran ODT] Med 08/06/19 17:13 Ordered 4 mg PO Q6H PRN Ondansetron [Zofran] Med 08/06/19 17:13 Ordered 4 mg IVPUSH Q6H PRN Promethazine [Phenergan] Med 08/06/19 17:13 Ordered 25 mg PO Q6H PRN Promethazine [Phenergan] Med 08/06/19 17:13 Ordered 6.25 mg IM Q6H PRN fentaNYL [Sublimaze] Med 08/06/19 17:17 Once 25 mcg IVPUSH ONETIME ONE oxyCODONE Med 08/06/19 17:13 Ordered 10 mg PO Q4H PRN oxyCODONE Med 08/06/19 17:13 Ordered 5 mg PO Q4H PRN Resuscitation Status Routine Resus Stat 08/06/19 17:13 Ordered Medication Orders Dextrose/Water (Dextrose 50% In Water) 25 ml IVPUSH ASDIRECTED PRN PRN Reason: Hypoglycemia Fentanyl (Sublimaze) 25 mcg IVPUSH ONETIME ONE Stop: 08/06/19 17:18 Glucagon (Glucagen) 1 mg IM ONETIME PRN PRN Reason: Hypoglycemia Heparin Sodium (Porcine) (Heparin Sodium) 5,000 units SUBCUT Q8HR HONG Levofloxacin/Dextrose 750 mg/ (Premix) 150 mls @ 100 mls/hr IV Q24H HONG Morphine Sulfate (Morphine) 2 mg IVPUSH Q3H PRN PRN Reason: Pain (severe 7-10) Ondansetron HCl (Zofran Odt) 4 mg PO Q6H PRN PRN Reason: nausea, able to take PO Ondansetron HCl (Zofran) 4 mg IVPUSH Q6H PRN PRN Reason: Nausea/Vomiting Oxycodone HCl (Oxycodone) 10 mg PO Q4H PRN PRN Reason: Pain (severe 7-10) Oxycodone HCl (Oxycodone) 5 mg PO Q4H PRN PRN Reason: Pain (moderate 4-6) Promethazine HCl (Phenergan) 25 mg PO Q6H PRN PRN Reason: nausea, able to take PO Promethazine HCl (Phenergan) 6.25 mg IM Q6H PRN PRN Reason: Nausea/Vomiting Senna/Docusate Sodium (Senna Plus) 1 tab PO BEDTIME PRN PRN Reason: Constipation Assessment/Plan Comment:: Sepsis due to pyelonephritis #Pyelonephritis Patient with UA positive for nitrites and leukocytes. With flank pain and CT finding of pyelonephritis. Follow-up on urine cultures Follow-up on blood cultures Continue Levaquin Pain regimen #Intractable nausea vomiting: Antiemetic protocol #Hypokalemia: Likely due to GI losses from vomiting IV potassium replacement Monitor and replace electrolytes #Anxiety PRN alprazolam Continue BuSpar #Obesity: BMI of 37. Weight loss counseling. #DVT prophylaxis: Heparin #GI prophylaxis: General diet CODE STATUS: Full code per patient preference
[2019-08-06] MEDS ORDERED: SUMATRIPTAN 50 MG PO PRN (17:45)
[2019-08-06] MEDS ORDERED: CETIRIZINE HCL 10 MG PO PRN (17:45)
[2019-08-06] MEDS ORDERED: ALPRAZolam 0.5 MG Tab PO PRN (17:45)
[2019-08-06] MEDS ORDERED: Potassium Chloride 10 MEQ in Premix Bag 1 BAG IV SCH (18:00)
[2019-08-06] MEDS ORDERED: Potassium Chloride 100 ML ONE (18:16)
[2019-08-06] MEDS: Potassium Chloride 20 MEQ in Premix Bag 1 BAG IV SCH ×2 (18:35→20:49)
[2019-08-06] MEDS: Ibuprofen 400 MG Tab PO PRN (19:26)
[2019-08-06] MEDS: Heparin Sodium 5,000 Units/ML Vial SUBCUT SCH (21:27)
[2019-08-07] MEDS: Lactated Ringers 1,000 ML IV SCH ×3 (03:10→22:47)
[2019-08-07] MEDS: Heparin Sodium 5,000 Units/ML Vial SUBCUT SCH ×3 (05:52→21:24)
[2019-08-07] MEDS: Ondansetron 4 MG Tab.DIS PO PRN ×2 (06:40→22:55)
[2019-08-07 07:07] LABS: ANION GAP 13.3 mEq/L (7-13); CHLORIDE,CL 102 mmol/L (98-107); SODIUM,NA 136 mmol/L (136-145)
[2019-08-07] MEDS: DULoxetine 30 MG Cap PO SCH (08:50)
[2019-08-07] MEDS: buPROPion 150 MG Tab.ER PO SCH (08:50)
[2019-08-07] MEDS ORDERED: Potassium Chloride 10 MEQ Tab.ER PO ONE (09:29)
[2019-08-07] MEDS: Phosphorus #1 250 MG Tab PO SCH ×2 (09:57→21:24)
[2019-08-07] MEDS ORDERED: Meclizine 12.5 MG Tab PO PRN (10:11)
--- NOTE | 2019-08-07 10:19 | PCM.PN ---
- General Info Date of Service: 08/07/19 Admission Dx/Problem (Free Text): Admission Diagnosis/Problem Admission Diagnosis/Problem Nephritis Subjective Update: Blood cultures positive for gram-negative bacilli. Reports that abdominal pain is significantly improved. Had nausea this morning that improved with Zofran. Had diaphoresis overnight. Anxious about being hospitalized due to for in the family. Reports that she has significant motion sickness and takes meclizine for that. Also states that she takes Prilosec at home. Denies fevers , chills, diarrhea, constipation, vision changes, chest pain, shortness of breath, or any new symptoms. - Patient Data Vitals - Most Recent: Last Vital Signs Temp 98.6 F 08/07/19 07:57 Pulse 118 H 08/07/19 07:57 Resp 18 08/07/19 07:57 BP 114/58 L 08/07/19 07:57 Pulse Ox 98 08/07/19 07:57 Weight - Most Recent: 220 lb 3.2 oz I&O - Last 24 Hours: Intake & Output 08/06/19 08/07/19 08/07/19 22:59 06:59 14:59 Intake Total 760 1434 500 Balance 760 1434 500 Lab Results Last 24 Hours: Laboratory Results - last 24 hr 08/06/19 08/06/19 08/06/19 Range/Units 14:45 14:45 14:45 WBC 13.0 H (5.0-10.0) 10^3/uL RBC 4.03 L (4.2-5.4) 10^6/uL Hgb 12.7 (12.0-16.0) g/dL Hct 37.1 (37.0-47.0) % MCV 92.1 (80-100) fL MCH 31.5 (27.0-34.0) pg MCHC 34.2 (33.0-35.0) g/dL Plt Count 262 D (150-450) 10^3/uL Neut % (Auto) 83.6 H (42.2-75.2) % Lymph % (Auto) 7.7 L (20.5-50.1) % [place] % (Auto) 8.3 H (2-8) % Eos % (Auto) 0.2 L (1.0-3.0) % Baso % (Auto) 0.2 (0.0-1.0) % Sodium 136 (136-145) mmol/L Potassium 3.1 L (3.5-5.1) mmol/L Chloride 99 (98-107) mmol/L Carbon Dioxide 25 (21-32) mmol/L Anion Gap 15.1 H (7-13) mEq/L BUN 9 (7-18) mg/dL Creatinine 0.91 (0.55-1.02) mg/dL Est Cr Clr Drug Dosing 73.09 mL/min Estimated GFR (MDRD) > 60 BUN/Creatinine Ratio 9.9 (No establ ref range) Glucose 124 H (74-99) mg/dL Lactic Acid 1.2 (0.4-2.0) mmol/L Calcium 8.5 (8.5-10.1) mg/dL Phosphorus (2.6-4.7) mg/dL Total Bilirubin 2.1 H (0.2-1.0) mg/dL Direct Bilirubin (0.0-0.2) mg/dL Indirect Bilirubin AST 19 (15-37) U/L ALT 44 (14-59) U/L Alkaline Phosphatase 100 (46-116) U/L Total Protein 7.2 (6.4-8.2) g/dL Albumin 3.4 (3.4-5.0) g/dL Globulin 3.8 Albumin/Globulin Ratio 0.9 Amylase 40 (25-115) U/L Lipase 78 (73-393) U/L 08/07/19 08/07/19 08/07/19 Range/Units 06:15 06:15 06:15 WBC 12.2 H (5.0-10.0) 10^3/uL RBC 3.67 L (4.2-5.4) 10^6/uL Hgb 11.5 L (12.0-16.0) g/dL Hct 33.8 L (37.0-47.0) % MCV 92.1 (80-100) fL MCH 31.3 (27.0-34.0) pg MCHC 34.0 (33.0-35.0) g/dL Plt Count 229 (150-450) 10^3/uL Neut % (Auto) (42.2-75.2) % Lymph % (Auto) (20.5-50.1) % [place] % (Auto) (2-8) % Eos % (Auto) (1.0-3.0) % Baso % (Auto) (0.0-1.0) % Sodium 136 (136-145) mmol/L Potassium 3.3 L (3.5-5.1) mmol/L Chloride 102 (98-107) mmol/L Carbon Dioxide 24 (21-32) mmol/L Anion Gap 13.3 H (7-13) mEq/L BUN 8 (7-18) mg/dL Creatinine 0.95 (0.55-1.02) mg/dL Est Cr Clr Drug Dosing 70.01 mL/min Estimated GFR (MDRD) > 60 BUN/Creatinine Ratio (No establ ref range) Glucose 138 H (74-99) mg/dL Lactic Acid (0.4-2.0) mmol/L Calcium 8.1 L (8.5-10.1) mg/dL Phosphorus 1.7 L (2.6-4.7) mg/dL Total Bilirubin 2.4 H (0.2-1.0) mg/dL Direct Bilirubin 1.3 H (0.0-0.2) mg/dL Indirect Bilirubin 1.1 AST 22 (15-37) U/L ALT 42 (14-59) U/L Alkaline Phosphatase 108 (46-116) U/L Total Protein 6.5 (6.4-8.2) g/dL Albumin 2.9 L (3.4-5.0) g/dL Globulin 3.6 Albumin/Globulin Ratio 0.81 Amylase (25-115) U/L Lipase (73-393) U/L Michael Results Last 24 Hours: Microbiology 08/07/19 09:47 Anaerobic Blood Culture - Final Blood - Venous 08/06/19 16:20 Aerobic Blood Culture - Preliminary Blood Med Orders - Current: Current Medications Alprazolam (Xanax) 0.5 mg PO DAILY PRN PRN Reason: Anxiety Bupropion HCl (Wellbutrin Xl) 300 mg PO DAILY [facility] Last Admin: 08/07/19 08:50 Dose: 300 mg Duloxetine HCl (Cymbalta) 60 mg PO DAILY [facility] Last Admin: 08/07/19 08:50 Dose: 60 mg Heparin Sodium (Porcine) (Heparin Sodium) 5,000 units SUBCUT Q8HR [facility] Last Admin: 08/07/19 05:52 Dose: 5,000 units Levofloxacin/Dextrose 750 mg/ (Premix) 150 mls @ 100 mls/hr IV Q24H [facility] Lactated Ringer's (Ringers, Lactated) 1,000 mls @ 125 mls/hr IV ASDIRECTED [facility] Last Admin: 08/07/19 03:10 Dose: 125 mls/hr Ibuprofen (Motrin) 400 mg PO Q4H PRN PRN Reason: Headache Last Admin: 08/06/19 19:26 Dose: 400 mg Morphine Sulfate (Morphine) 2 mg IVPUSH Q3H PRN PRN Reason: Pain (severe 7-10) Ondansetron HCl (Zofran Odt) 4 mg PO Q6H PRN PRN Reason: nausea, able to take PO Last Admin: 08/07/19 06:40 Dose: 4 mg Ondansetron HCl (Zofran) 4 mg IVPUSH Q6H PRN PRN Reason: Nausea/Vomiting Oxycodone HCl (Oxycodone) 10 mg PO Q4H PRN PRN Reason: Pain (severe 7-10) Oxycodone HCl (Oxycodone) 5 mg PO Q4H PRN PRN Reason: Pain (moderate 4-6) Last Admin: 08/06/19 19:28 Dose: 5 mg Promethazine HCl (Phenergan) 25 mg PO Q6H PRN PRN Reason: nausea, able to take PO Promethazine HCl (Phenergan) 6.25 mg IM Q6H PRN PRN Reason: Nausea/Vomiting Last Admin: 08/06/19 17:58 Dose: 6.25 mg Promethazine HCl (Phenadoz) 12.5 mg RECTAL Q6H PRN PRN Reason: Nausea/Vomiting Senna/Docusate Sodium (Senna Plus) 1 tab PO BEDTIME PRN PRN Reason: Constipation Sodium Phosphate (Neutra-Phos) 500 mg PO BID [facility] Last Admin: 08/07/19 09:57 Dose: 500 mg Discontinued Medications Dextrose/Water (Dextrose 50% In Water) 25 ml IVPUSH ASDIRECTED PRN PRN Reason: Hypoglycemia Fentanyl (Sublimaze) 25 mcg IVPUSH ONETIME ONE Stop: 08/06/19 17:18 Last Admin: 08/06/19 18:08 Dose: 25 mcg Glucagon (Glucagen) 1 mg IM ONETIME PRN PRN Reason: Hypoglycemia Hydromorphone HCl (Dilaudid) 0.5 mg IVPUSH ONETIME ONE Stop: 08/06/19 14:40 Last Admin: 08/06/19 14:58 Dose: 0.5 mg Sodium Chloride (Normal Saline) 1,000 mls @ 999 mls/hr IV .BOLUS ONE Stop: 08/06/19 15:32 Last Admin: 08/06/19 14:51 Dose: 999 mls/hr Levofloxacin/Dextrose 500 mg/ (Premix) 100 mls @ 100 mls/hr IV ONETIME ONE Stop: 08/06/19 17:11 Last Admin: 08/06/19 16:21 Dose: 100 mls/hr Potassium Chloride (Kcl 10 Meq In Water 100 Ml) Confirm Administered Dose 100 mls @ as directed .ROUTE .STK-MED ONE Stop: 08/06/19 18:17 Last Admin: 08/06/19 18:35 Dose: Not Given Potassium Chloride 20 meq/ (Premix) 100 mls @ 50 mls/hr IV Q2H [facility] Stop: 08/06/19 22:29 Last Admin: 08/06/19 20:49 Dose: 50 mls/hr Metoclopramide HCl (Reglan) 10 mg IVPUSH ONETIME ONE Stop: 08/06/19 15:02 Last Admin: 08/06/19 15:05 Dose: 10 mg Cetirizine Hcl [ (Zyrtec] 10mg) 10 mg PO DAILY PRN PRN Reason: Allergies Sumatriptan [Imitrex (] 50mg Tablet) 50 mg PO BID PRN PRN Reason: migraine Ondansetron HCl (Zofran) 4 mg IVPUSH ONETIME ONE Stop: 08/06/19 14:34 Last Admin: 08/06/19 14:51 Dose: 4 mg Potassium Chloride (Klor-Con 10) 40 meq PO ONETIME ONE Stop: 08/07/19 09:30 Last Admin: 08/07/19 09:57 Dose: 40 meq Promethazine HCl (Phenergan) 25 mg PO Q6H PRN PRN Reason: Nausea/Vomiting - Exam General: Alert, Oriented, Moderate Distress HEENT: Pupils Equal, Pupils Reactive, Mucous Membr. Moist/[place] Neck: Supple, Trachea Midline Lungs: Clear to Auscultation, Normal Respiratory Effort Cardiovascular: Regular Rate, Regular Rhythm GI/Abdominal Exam: Normal Bowel Sounds, Soft, Non-Tender Back Exam: CVA Tenderness (R) (Improved per patient. ) Extremities: Normal Inspection, Non-Tender, No Pedal Edema Skin: Warm, Dry, Intact Neurological: No New Focal Deficit Psy/Mental Status: Alert, Normal Affect, Anxious (Crying during bedside rounds. ) Sepsis Event Note - Evaluation Sepsis Screening Result: Severe Sepsis Risk - Focused Exam Vital Signs: Vital Signs Temp Pulse Resp BP Pulse Ox 08/07/19 07:57 98.6 F 118 H 18 114/58 L 98 Date Exam was Performed: 08/07/19 Time Exam was Performed: 10:14 - Problem List & Annotations (1) Anxiety SNOMED Code(s): 99195439 Code(s): F41.9 - ANXIETY DISORDER, UNSPECIFIED Status: Acute Current Visit: Yes (2) Sepsis due to urinary tract infection SNOMED Code(s): 449407503 Code(s): A41.9 - SEPSIS, UNSPECIFIED ORGANISM; N39.0 - URINARY TRACT INFECTION, SITE NOT SPECIFIED Status: Acute Current Visit: Yes (3) Hypokalemia SNOMED Code(s): 10632185 Code(s): E87.6 - HYPOKALEMIA Status: Acute Current Visit: Yes (4) Obesity (BMI 30-39.9) SNOMED Code(s): 672100808, 577535698 Code(s): E66.9 - OBESITY, UNSPECIFIED Status: Acute Current Visit: Yes (5) Pyelonephritis SNOMED Code(s): 97633498 Code(s): N12 - TUBULO-INTERSTITIAL NEPHRITIS, NOT SPCF ACUTE OR CHRONIC Status: Acute Current Visit: No (6) Bacteremia SNOMED Code(s): 4895263 Code(s): R78.81 - BACTEREMIA Status: Acute Current Visit: Yes - Problem List Review Problem List Initiated/Reviewed/Updated: Yes - My Orders Last 24 Hours: My Active Orders 08/06/19 17:13 Intake and Output [RC] QSHIFT Oxygen Therapy [RC] .PRN VTE/DVT Education [RC] PER UNIT ROUTINE Vital Signs [RC] 00,04,08,12,16,20 Docusate Sodium/Sennosides [Senna Plus] 1 tab PO BEDTIME PRN Morphine 2 mg IVPUSH Q3H PRN Ondansetron [Zofran ODT] 4 mg PO Q6H PRN Ondansetron [Zofran] 4 mg IVPUSH Q6H PRN Promethazine [Phenergan] 25 mg PO Q6H PRN Promethazine [Phenergan] 6.25 mg IM Q6H PRN oxyCODONE 10 mg PO Q4H PRN oxyCODONE 5 mg PO Q4H PRN Resuscitation Status Routine 08/06/19 17:36 Promethazine [Phenadoz] 12.5 mg RECTAL Q6H PRN 08/06/19 17:45 ALPRAZolam [Xanax] 0.5 mg PO DAILY PRN Ibuprofen [Motrin] 400 mg PO Q4H PRN 08/06/19 19:00 Lactated Ringers [Ringers, Lactated] 1,000 ml IV ASDIRECTED 08/06/19 22:00 Heparin Sodium 5,000 units SUBCUT Q8HR 08/06/19 Dinner Regular Diet [DIET] 08/07/19 09:00 DULoxetine [Cymbalta] 60 mg PO DAILY buPROPion [Wellbutrin XL] 300 mg PO DAILY 08/07/19 09:30 Phosphorus #1 [Neutra-Phos] 500 mg PO BID Blood Culture x2 Reflex Set [OM.PC] Stat 08/07/19 09:47 CULTURE BLOOD [BC] Stat 08/07/19 09:50 CULTURE BLOOD [BC] Stat 08/07/19 10:11 Meclizine [Antivert] 12.5 mg PO Q6H PRN 08/07/19 10:15 Omeprazole 20 mg PO DAILY 08/07/19 17:00 Levofloxacin/Dextrose 5%-Water [Levaquin in D5W 750 MG/150 ML] 750 mg Premix Bag 1 bag IV Q24H 08/08/19 05:11 BASIC METABOLIC PANEL,BMP [CHEM] AM MAGNESIUM [CHEM] AM PHOSPHORUS [CHEM] AM - Plan Plan:: Sepsis due to pyelonephritis and gram-negative bacteremia #Pyelonephritis Patient with UA positive for nitrites and leukocytes. With flank pain and CT finding of pyelonephritis. Follow-up on urine cultures Follow-up on blood cultures for sensitivities. Repeat blood cultures. Continue Levaquin Pain regimen #Intractable nausea vomiting: Antiemetic protocol #Hypokalemia: Potassium of 3.0 this morning. Likely due to GI losses from vomiting IV potassium replacement Monitor and replace electrolytes #Hypophosphatemia: Oral phos replacement. #GERD: Prilosec #Vertigo/Motion sickness: Antivert PRN #Anxiety PRN alprazolam Continue BuSpar #Obesity: BMI of 37. Weight loss counseling. #DVT prophylaxis: Heparin #GI prophylaxis: General diet CODE STATUS: Full code per patient preference
[2019-08-07] MEDS: Omeprazole 20 MG Cap.CR PO SCH (11:07)
[2019-08-07] MEDS: Ibuprofen 400 MG Tab PO PRN (15:57)
[2019-08-07] MEDS ORDERED: Levofloxacin/Dextrose 5%-Water 750 MG in Premix Bag 1 BAG IV SCH (17:00)
[2019-08-08] MEDS: Heparin Sodium 5,000 Units/ML Vial SUBCUT SCH (05:48)
[2019-08-08] MEDS: Omeprazole 20 MG Cap.CR PO SCH (05:49)
[2019-08-08 05:50] LABS: ANION GAP 12.3 mEq/L (7-13); CHLORIDE,CL 100 mmol/L (98-107); SODIUM,NA 137 mmol/L (136-145)
[2019-08-08] MEDS: Ondansetron 4 MG Tab.DIS PO PRN (08:00)
[2019-08-08] MEDS: Ibuprofen 400 MG Tab PO PRN (08:00)
[2019-08-08] MEDS: Phosphorus #1 250 MG Tab PO SCH (08:01)
[2019-08-08] MEDS: buPROPion 150 MG Tab.ER PO SCH (08:01)
[2019-08-08] MEDS: DULoxetine 30 MG Cap PO SCH (08:02)
[2019-08-08] MEDS ORDERED: Potassium Chloride 10 MEQ Tab.ER PO ONE (09:27)
--- NOTE | 2019-08-08 10:00 | PCM.DCSUM1 ---
Discharge Summary - Hospital Course Free Text/Narrative:: Patient is a 39-year-old female with medical history significant for polycystic ovarian syndrome, antiphospholipid antibody syndrome, secondary infertility, anxiety, GERD, and obesity who was admitted for sepsis due to pyelonephritis. Blood cultures were obtained and she was started on IV Levaquin. Patient had nausea and vomiting which were controlled with antiemetic protocol. Blood cultures came back gram-negative bacilli. Patient improved significantly clinically. Abdominal pain was resolved. Patient had low magnesium, phosphorus , and potassium at various points during hospitalization. Electrolytes were replaced with oral options, except for IV potassium chloride which was given upon admission due to significant nausea and vomiting at that time. Sensitivities still pending. However patient request that she be discharged to continue oral antibiotics due to burial in her family that she definitely wants to attend. Patient is being discharged to continue Levaquin and to follow-up with PCP. She agrees to continue her antibiotics and to follow-up with PCP for follow-up CBC, CMP, magnesium, and phosphorus. Patient understands that she will be called with new prescription for antibiotics if final culture result is resistant to Levaquin. Recommend the PCP obtain further work-up if patient has persistent hyperbilirubinemia.. HPI Initial Comments: Patient is a 39-year-old female with medical history significant for polycystic ovarian syndrome, antiphospholipid antibody syndrome, secondary infertility, anxiety, GERD, and obesity who was sent to the ED from clinic after she presented with abdominal pain. Patient reports that she has had 3-4/10 right- sided mid back pain that started below the wrist about 3 days ago. States that pain has been slowly progressive and has involve the right upper abdomen and now the entire abdomen. States the pain was 9/10 prior to presentation to the ED. Reports that she had recurrent emesis throughout the night last night. States that emesis was nonbilious and nonbloody. Reports shaking chills and diaphoresis overnight. Denies any abdominal trauma. States that she had dysuria that started about 4 days ago. Denies hematuria. Denies chest pain, shortness of breath, diarrhea, constipation, edema, lightheadedness, vision changes, or any other symptoms. In the clinic, UA was obtained which showed small leukocytes and was positive for nitrites. Urine microscopy showed moderate bacteria, greater than 100 WBCs per high-power field. Also showed 1-5 RBCs per a high-power field. Patient was sent to the ED for further work-up. In the ED, WBC count was 13.0 with hemoglobin of 12.7 and platelet count of 262. Patient's sodium was 136 with potassium of 3.1 chloride was 99, bicarb 25 , creatinine 0.91, BUN of 9, and glucose of 124. Lactic acid was 1.2. Total bilirubin was 2.1. CT abdomen pelvis was obtained without contrast which showed pyelonephritis. Was given a dose of IV Levaquin. She had nausea vomiting in the ED and required IV Zofran and Reglan. She continues to have nausea and vomiting. Patient is being admitted for IV antibiotics and intractable nausea vomiting. Diagnosis: Stroke: No - Discharge Data Discharge Date: 08/08/19 Discharge Disposition: Home, Self-Care 01 Condition: Stable - Referral to Home Health Primary Care Physician: PCP None - Discharge Diagnosis/Problem(s) (1) Anxiety SNOMED Code(s): 02088914 ICD Code: F41.9 - ANXIETY DISORDER, UNSPECIFIED Status: Acute Current Visit: Yes (2) Sepsis due to urinary tract infection SNOMED Code(s): 928997694 ICD Code: A41.9 - SEPSIS, UNSPECIFIED ORGANISM; N39.0 - URINARY TRACT INFECTION, SITE NOT SPECIFIED Status: Acute Current Visit: Yes (3) Hypokalemia SNOMED Code(s): 78687676 ICD Code: E87.6 - HYPOKALEMIA Status: Acute Current Visit: Yes (4) Obesity (BMI 30-39.9) SNOMED Code(s): 239785913, 481518843 ICD Code: E66.9 - OBESITY, UNSPECIFIED Status: Acute Current Visit: Yes (5) Pyelonephritis SNOMED Code(s): 00095929 ICD Code: N12 - TUBULO-INTERSTITIAL NEPHRITIS, NOT SPCF ACUTE OR CHRONIC Status: Acute Current Visit: No (6) Bacteremia SNOMED Code(s): 8777868 ICD Code: R78.81 - BACTEREMIA Status: Acute Current Visit: Yes - Patient Summary/Data Recommended Follow-up Testing/Procedures: CBC, CMP, magnesium, phosphorus. Follow up with PCP in 5 days. - Discharge Plan *PRESCRIPTION DRUG MONITORING PROGRAM REVIEWED*: Not Applicable *COPY OF PRESCRIPTION DRUG MONITORING REPORT IN PATIENT DIANA: Not Applicable Prescriptions/Med Rec: levoFLOXacin [Levaquin] 750 mg PO DAILY #8 tablet Magnesium Oxide 400 mg PO DAILY #4 tab Ondansetron [Zofran ODT] 4 mg PO Q6H PRN #10 tab.dis PRN Reason: nausea, able to take PO Phosphorus #1 [Neutra-Phos] 500 mg PO TID #15 tablet Home Medications: Home Meds ALPRAZolam [Alprazolam] 0.5 mg PO DAILY PRN 11/22/18 [History] Cetirizine HCl [Zyrtec] 10 mg PO DAILY PRN 11/22/18 [History] Ibuprofen 400 mg PO Q4H PRN 11/22/18 [History] SUMAtriptan [Imitrex] 50 mg PO BID PRN 11/22/18 [History] buPROPion HCL [Wellbutrin Xl] 300 mg PO DAILY 11/22/18 [History] DULoxetine HCl [Duloxetine HCl] 60 mg PO DAILY 08/06/19 [History] Magnesium Oxide 400 mg PO DAILY #4 tab 08/08/19 [Rx] Meclizine [Antivert] 12.5 mg PO Q6H PRN tablet 08/08/19 [Rx] Omeprazole 20 mg PO ACBREAKFAST cap.cr 08/08/19 [Rx] Ondansetron [Zofran ODT] 4 mg PO Q6H PRN #10 tab.dis 08/08/19 [Rx] Phosphorus #1 [Neutra-Phos] 500 mg PO TID #15 tablet 08/08/19 [Rx] levoFLOXacin [Levaquin] 750 mg PO DAILY #8 tablet 08/08/19 [Rx] Patient Handouts: Ondansetron tablets, Urinary Tract Infection, Adult, Easy-to- Read, Levofloxacin tablets, Potassium phosphate; Sodium Phosphate oral tablet, Magnesium Salts capsules or tablets, immediate release Referrals: Rochelle Azar MD [Physician] - - Discharge Summary/Plan Comment DC Time >30 min.: Yes - General Info Date of Service: 08/08/19 Admission Dx/Problem (Free Text: Admission Diagnosis/Problem Admission Diagnosis/Problem Nephritis Subjective Update: Blood cultures pending. Speciation and sensitivities pending for original blood cultures. Reports that she had nausea this morning but resolved with antiemetic. No vomiting. Denies fevers, chills, diarrhea, constipation, vision changes, chest pain, shortness of breath, or any new symptoms. - Patient Data Vitals - Most Recent: Last Vital Signs Temp 99.5 F 08/08/19 07:52 Pulse 116 H 08/08/19 07:52 Resp 18 08/08/19 07:52 BP 125/58 L 08/08/19 07:52 Pulse Ox 97 08/08/19 07:52 Weight - Most Recent: 220 lb 3.2 oz I&O - Last 24 hours: Intake & Output 08/07/19 08/08/19 08/08/19 22:59 06:59 14:59 Intake Total 417 1040 1508 Balance 417 1040 1508 Lab Results - Last 24 hrs: Laboratory Results - last 24 hr 08/08/19 Range/Units 05:30 Sodium 137 (136-145) mmol/L Potassium 3.3 L (3.5-5.1) mmol/L Chloride 100 (98-107) mmol/L Carbon Dioxide 28 (21-32) mmol/L Anion Gap 12.3 (7-13) mEq/L BUN 4 L (7-18) mg/dL Creatinine 0.88 (0.55-1.02) mg/dL Est Cr Clr Drug Dosing 75.58 mL/min Estimated GFR (MDRD) > 60 Glucose 134 H (74-99) mg/dL Calcium 7.9 L (8.5-10.1) mg/dL Phosphorus 2.7 (2.6-4.7) mg/dL Magnesium 1.5 L (1.8-2.4) mg/dL BRANDO Results - Last 24 hrs: Microbiology 08/06/19 16:20 Aerobic Blood Culture - Preliminary Blood Anaerobic Blood Culture - Preliminary NO GROWTH AFTER 1 DAY 08/06/19 14:45 Aerobic Blood Culture - Preliminary Blood NO GROWTH AFTER 1 DAY Anaerobic Blood Culture - Preliminary NO GROWTH AFTER 1 DAY 08/07/19 09:47 Anaerobic Blood Culture - Final Blood - Venous Med Orders - Current: Current Medications Alprazolam (Xanax) 0.5 mg PO DAILY PRN PRN Reason: Anxiety Bupropion HCl (Wellbutrin Xl) 300 mg PO DAILY [facility] Last Admin: 08/08/19 08:01 Dose: 300 mg Duloxetine HCl (Cymbalta) 60 mg PO DAILY [facility] Last Admin: 08/08/19 08:02 Dose: 60 mg Heparin Sodium (Porcine) (Heparin Sodium) 5,000 units SUBCUT Q8HR [facility] Last Admin: 08/08/19 05:48 Dose: 5,000 units Levofloxacin/Dextrose 750 mg/ (Premix) 150 mls @ 100 mls/hr IV Q24H [facility] Last Infusion: 08/07/19 18:53 Dose: Infused Lactated Ringer's (Ringers, Lactated) 1,000 mls @ 125 mls/hr IV ASDIRECTED [facility] Last Infusion: 08/08/19 07:44 Dose: Infused Ibuprofen (Motrin) 400 mg PO Q4H PRN PRN Reason: Headache Last Admin: 08/08/19 08:00 Dose: 400 mg Meclizine HCl (Antivert) 12.5 mg PO Q6H PRN PRN Reason: Other Last Admin: 08/07/19 21:28 Dose: 12.5 mg Morphine Sulfate (Morphine) 2 mg IVPUSH Q3H PRN PRN Reason: Pain (severe 7-10) Omeprazole (Omeprazole) 20 mg PO ACBREAKFAST [facility] Last Admin: 08/08/19 05:49 Dose: 20 mg Ondansetron HCl (Zofran Odt) 4 mg PO Q6H PRN PRN Reason: nausea, able to take PO Last Admin: 08/08/19 08:00 Dose: 4 mg Ondansetron HCl (Zofran) 4 mg IVPUSH Q6H PRN PRN Reason: Nausea/Vomiting Last Admin: 08/07/19 12:09 Dose: 4 mg Oxycodone HCl (Oxycodone) 10 mg PO Q4H PRN PRN Reason: Pain (severe 7-10) Oxycodone HCl (Oxycodone) 5 mg PO Q4H PRN PRN Reason: Pain (moderate 4-6) Last Admin: 08/06/19 19:28 Dose: 5 mg Promethazine HCl (Phenergan) 25 mg PO Q6H PRN PRN Reason: nausea, able to take PO Promethazine HCl (Phenergan) 6.25 mg IM Q6H PRN PRN Reason: Nausea/Vomiting Last Admin: 08/06/19 17:58 Dose: 6.25 mg Promethazine HCl (Phenadoz) 12.5 mg RECTAL Q6H PRN PRN Reason: Nausea/Vomiting Senna/Docusate Sodium (Senna Plus) 1 tab PO BEDTIME PRN PRN Reason: Constipation Last Admin: 08/07/19 15:57 Dose: 1 tab Sodium Phosphate (Neutra-Phos) 500 mg PO BID [facility] Last Admin: 08/08/19 08:01 Dose: 500 mg Discontinued Medications Dextrose/Water (Dextrose 50% In Water) 25 ml IVPUSH ASDIRECTED PRN PRN Reason: Hypoglycemia Fentanyl (Sublimaze) 25 mcg IVPUSH ONETIME ONE Stop: 08/06/19 17:18 Last Admin: 08/06/19 18:08 Dose: 25 mcg Glucagon (Glucagen) 1 mg IM ONETIME PRN PRN Reason: Hypoglycemia Hydromorphone HCl (Dilaudid) 0.5 mg IVPUSH ONETIME ONE Stop: 08/06/19 14:40 Last Admin: 08/06/19 14:58 Dose: 0.5 mg Sodium Chloride (Normal Saline) 1,000 mls @ 999 mls/hr IV .BOLUS ONE Stop: 08/06/19 15:32 Last Admin: 08/06/19 14:51 Dose: 999 mls/hr Levofloxacin/Dextrose 500 mg/ (Premix) 100 mls @ 100 mls/hr IV ONETIME ONE Stop: 08/06/19 17:11 Last Admin: 08/06/19 16:21 Dose: 100 mls/hr Potassium Chloride (Kcl 10 Meq In Water 100 Ml) Confirm Administered Dose 100 mls @ as directed .ROUTE .STK-MED ONE Stop: 08/06/19 18:17 Last Admin: 08/06/19 18:35 Dose: Not Given Potassium Chloride 20 meq/ (Premix) 100 mls @ 50 mls/hr IV Q2H [facility] Stop: 08/06/19 22:29 Last Admin: 08/06/19 20:49 Dose: 50 mls/hr Metoclopramide HCl (Reglan) 10 mg IVPUSH ONETIME ONE Stop: 08/06/19 15:02 Last Admin: 08/06/19 15:05 Dose: 10 mg Cetirizine Hcl [ (Zyrtec] 10mg) 10 mg PO DAILY PRN PRN Reason: Allergies Sumatriptan [Imitrex (] 50mg Tablet) 50 mg PO BID PRN PRN Reason: migraine Ondansetron HCl (Zofran) 4 mg IVPUSH ONETIME ONE Stop: 08/06/19 14:34 Last Admin: 08/06/19 14:51 Dose: 4 mg Potassium Chloride (Klor-Con 10) 40 meq PO ONETIME ONE Stop: 08/07/19 09:30 Last Admin: 08/07/19 09:57 Dose: 40 meq Potassium Chloride (Klor-Con 10) 40 meq PO ONETIME ONE Stop: 08/08/19 09:28 Last Admin: 08/08/19 09:52 Dose: 40 meq Promethazine HCl (Phenergan) 25 mg PO Q6H PRN PRN Reason: Nausea/Vomiting - Exam General: Reports: Alert, Oriented, Cooperative, No Acute Distress (Doing stretches on the floor this morning. ) HEENT: Reports: Pupils Equal, Mucous Membr. Moist/[place] Neck: Reports: Supple, Trachea Midline Lungs: Reports: Clear to Auscultation, Normal Respiratory Effort Cardiovascular: Reports: Regular Rate, Regular Rhythm, No Murmurs GI/Abdominal Exam: Normal Bowel Sounds, Soft, Non-Tender, No Distention Back Exam: Reports: Normal Inspection, Full Range of Motion Extremities: Normal Inspection, Non-Tender, No Pedal Edema Skin: Reports: Warm, Dry, Intact Neurological: Reports: No New Focal Deficit Psy/Mental Status: Reports: Alert, Normal Affect, Normal Mood
== END 2019-08-08 10:25 | disposition home or self-care (01) | DRG 720 ==
LOC: DL.ED 14:19 → DL.MS 16:20 → DL.ED 16:40
PROVIDERS: ADMIT Internal Medicine; ATTEND Internal Medicine
DX: A41.59 Other Gram-negative sepsis (principal); N12 Tubulo-interstitial nephritis, not specified as acute or chronic; E28.2 Polycystic ovarian syndrome; D68.61 Antiphospholipid syndrome; F41.9 Anxiety disorder, unspecified; K21.9 Gastro-esophageal reflux disease without esophagitis; E66.9 Obesity, unspecified; E87.6 Hypokalemia; H54.7 Unspecified visual loss; G89.29 Other chronic pain; M54.9 Dorsalgia, unspecified; G43.909 Migraine, unspecified, not intractable, without status migrainosus; F32.9 Major depressive disorder, single episode, unspecified; Z88.2 Allergy status to sulfonamides; Z88.8 Allergy status to other drugs, medicaments and biological substances; Z87.442 Personal history of urinary calculi; Z87.440 Personal history of urinary (tract) infections; Z79.899 Other long term (current) drug therapy; Z90.710 Acquired absence of both cervix and uterus; Z68.37 Body mass index [BMI] 37.0-37.9, adult
CPT/HCPCS: 36415; 74176; 80048; 80053; 80076; 82150; 83605; 83690; 83735; 84100; 85025; 85027; 87040; 87077; 87186; 96361; 96374; 96375; 99285-25; A9270-GY; J1170; J1644; J1956; J2405; J2550; J2765; J3010; J3480; J7030; J7120

== ENCOUNTER 2024-06-28 19:43 | Emergency (ER) | payer BC, MEDICAID ==
[2024-06-28] MEDS: Morphine 2 MG/ML SYRINGE IM ONE (20:09)
[2024-06-28] MEDS: Ketorolac 30 MG/ML SDV IM ONE (20:09)
[2024-06-28] MEDS: Take Home: Cyclobenzaprine 10 MG Tab, 4 Tab Pack PO ONE (20:12)
== END 2024-06-28 20:18 | disposition home or self-care (01) ==
LOC: DL.ED 19:43
DX: M62.830 Muscle spasm of back (principal); Z88.2 Allergy status to sulfonamides; Z88.8 Allergy status to other drugs, medicaments and biological substances; Z79.899 Other long term (current) drug therapy
CPT/HCPCS: 96372; 99283; 99284; A9270; J1885; J2270